=== PATIENT | female | born 2005 | race Caucasian/White ===

== ENCOUNTER 2023-10-09 14:03 | Emergency (ER) | payer OTHER ==
[~2023-10-09] VITALS: Ht 157.5 cm; Wt 54.5 kg
[2023-10-09] MEDS ORDERED: Ketorolac 30 MG/ML VIAL IM ONE (14:30)
[2023-10-09 14:55] VITALS: BP 111/73; PULSE 82; TEMP 98.5
== END 2023-10-09 14:55 | disposition home or self-care (01) ==
LOC: COL.ER 14:03
DX: K02.9 Dental caries, unspecified (principal)
CPT/HCPCS: J1885